=== PATIENT | male | born 1960 | race Caucasian/White ===

== ENCOUNTER → 2016-11-14 | Day surgery (SDC) | payer OTHER ==
[~2016-11-14] MED LIST: CALCIUM 600 +1 EA11 PO; EC-NAPROSYN500 MG PO; FLONASE16 GM; FLOVENT DISKU250 MCG NS; FOSAMAX70 MG PO; LEVOTHYROXINE75 MC1 PO; MYCOPHENOLATE500 MG PO; NAPROSYN500 MG PO; NAPROXEN500 M1 PO; NORCO 5/325 TAB1 TAB PO; ONMEL200 MG PO; OXYGEN INH; PREDNISONE PO; PREDNISONE10 MG PO; PREDNISONE5 M1 PO; SYNTHROID PO; VITAMIN D250000 UNIT PO; [UNRECOGNIZED DRUG - OTHER] IV
--- NOTE | ~2016-11-14 | OR ---
Unit #: [id number] #: [id number] Patient: LEE MINAYA [id number] [facility]. [place], [place] [address] [id number] O MR#: [id number] NAME: LEE MINAYA ROOM: Date of Procedure: 11/14/2016 Admission Date: 11/14/2016 Surgeon: Matthieu Ellis M.D. : 1960 Attending Physician: Matthieu Ellis M.D. Primary Care Physician: Moris Barry M.D. OPERATIVE REPORT PREOPERATIVE DIAGNOSES The patient has come for colorectal cancer screening. He has no family history of colon cancer. No previous examination. Incidentally, he is listed for lung transplant at [facility]. The etiology of lung disease is rheumatoid arthritis. PROCEDURE PERFORMED Colonoscopy up to cecum and terminal ileum with good prep and visualization. POSTOPERATIVE DIAGNOSES Completely normal examination except for small internal hemorrhoids. RECOMMENDATIONS Repeat colonoscopy in 5 years especially if the patient has likely been on immunosuppression. SEDATION USED MAC. DESCRIPTION OF PROCEDURE Following detailed explanation of the potential risks and complications of a colonoscopy, namely perforation, bleeding, complication related to sedation, the patient was brought to GI lab and laid in the left lateral decubitus position. A digital rectal examination was performed, which was normal. Lubricated tip of the Olympus video colonoscope was inserted through the anus and advanced under direct vision. The scope was advanced and passed up to sigmoid into descending colon. No diverticula were noted in this area. The scope was then navigated all the way up to cecum with visualization of the ileocecal valve and the appendiceal orifice. Preparation was good with good visualization and photodocumentation was obtained. Last several inches of the terminal ileum also visualized after intubation of the ileocecal valve and appeared normal. Successive segments of the colonic mucosa were examined upon withdrawal and appeared unremarkable. There being no polyps, mass, lesions, AVMs, or diverticula. The patient did have small internal hemorrhoids seen at the anal verge. The scope was then withdrawn. The patient returned to the recovery area. He tolerated the procedure without any postprocedure complications. Unit #: [id number] #: [id number] Patient: LEE MINAYA Dictated by... Ronda Owens/sai TD: 11/14/2016 08:55 JOB #: [id number] CC: Ronda Abdullahi M.D. OPERATIVE REPORT Page 1 of 1 X Matthieu Ellis MD PROCEDURE OPERATIVE NOTE
== END | disposition home or self-care (01) ==
LOC: COPS 06:04
DX: Z12.11 Encounter for screening for malignant neoplasm of colon (principal); K64.8 Other hemorrhoids; E03.9 Hypothyroidism, unspecified; M06.9 Rheumatoid arthritis, unspecified; J84.10 Pulmonary fibrosis, unspecified; Z80.0 Family history of malignant neoplasm of digestive organs; Z88.0 Allergy status to penicillin; Z79.899 Other long term (current) drug therapy; Z99.81 Dependence on supplemental oxygen; Z90.49 Acquired absence of other specified parts of digestive tract; Z98.890 Other specified postprocedural states

== ENCOUNTER → 2016-12-10 | Outpatient (CLI) | payer OTHER ==
--- NOTE | ~2016-12-10 | US6 ---
[facility] A Service of [facility] & [facility] RADIOLOGY TEXT RESULTS PATIENT: LEE MINAYA LOCATION: CGUS : 60 UNIT #: [id number] AGE: [address]: LEE TIDWELL SEX: M ORDER DR: [id number] [facility] [address] [place], [place] [address] [id number] O MR#: [id number] Acc #: [id number] NAME: LEE MINAYA : 1960 SEX: M STUDY DATE/TIME: 12/10/2016 10:17 UNIT: CGUS ROOM: STUDY DESCRIPTION: US Abdominal Limited Attending Physician: Lee Tidwell Referring Physician: Lee Tidwell Ordering Physician: Physician Non-Staff Primary Care Physician: Moris Barry M.D. MEDICAL IMAGING REPORT This report is preliminary unless electronic signature is present EXAM Ultrasound abdomen limited HISTORY Abdomen pain, abdomen pain for 2 weeks. Appendectomy age 12. No hypertension or hyper hyperlipidemia, diabetes, CVA or myocardial infarction. Preoperative for lung transplant. FINDINGS Real time ultrasonography of the right upper quadrant performed. 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 Visualized portions of the pancreas are remarkable but significant portions of the pancreatic head and tail are obscured by bowel gas artifact. The portal vein is patent. Somewhat bidirectional flow. Correlate clinically for any indications of portal hypertension. The liver appears relatively small in size measuring about 12 cm in craniocaudal extent. Increased parenchymal echogenicity suggesting underlying fatty infiltration. No suspicious focal abnormality. Gallbladder normal in volume. No gallbladder wall thickening or pericholecystic fluid. No gallstones. No intra or extrahepatic biliary ductal dilatation. Common bile duct measures 2.9 mm in diameter. The right kidney measures 10.33 cm in greatest length. No hydronephrosis or nephrolithiasis. No cystic or solid mass lesion and no perinephric fluid collection. Fatty infiltration of liver. No suspicious focal parenchymal abnormality is seen. Hepatic contour is normal. Liver slightly small in size. IMPRESSION 1. Gallbladder unremarkable. Right kidney normal in appearance. 2. The portal vein is patent. Slightly bidirectional flow suggested in the portal vein. This may be an artifact. Correlate with any STS. [facility] A Service of [facility] & [facility] RADIOLOGY TEXT RESULTS PATIENT: LEE MINAYA LOCATION: [facility] : 60 UNIT #: [id number] AGE: [address]: LEE TIDWELL SEX: M ORDER DR: clinical concern for elevated portal pressure/portal hypertension. No stigmata of portal hypertension on the basis of this examination alone. 3. The visualized portions of pancreas are unremarkable, but significant portions are obscured by bowel gas artifact. If pancreas is of clinical concern, it could be further evaluated with CT. STAT * RESULT Dictated by... Gregory Smith M.D. THIS IS AN ELECTRONICALLY VERIFIED REPORT Gregory Smith M.D. at 12/11/2016 2:07 PM Darryl TD: 12/10/2016 21:29 JOB #: [id number] MEDICAL IMAGING REPORT Page 1 of 1 COPY
== END | disposition home or self-care (01) ==
LOC: CGUS 09:45
DX: R10.9 Unspecified abdominal pain (principal)
CPT/HCPCS: 76705